=== PATIENT | female | born 1975 | race Hispanic/Latino ===

== ENCOUNTER 2020-06-24 21:47 | Emergency (ER) | payer BC | END 2020-06-24 22:06 | disposition home or self-care (01) | LOC: CSHERS 21:47 | DX: R20.2 Paresthesia of skin (principal); T50.B95A Adverse effect of other viral vaccines, initial encounter | CPT/HCPCS: 99283 ==

== ENCOUNTER 2021-02-21 16:06 | Outpatient (CLI) | payer BC | END 2021-02-21 16:07 | disposition home or self-care (01) | LOC: CSHMAMMO 16:06 | PROVIDERS: ATTEND Family Medicine | DX: Z12.31 Encounter for screening mammogram for malignant neoplasm of breast (principal) | CPT/HCPCS: 77063; 77067 ==

== ENCOUNTER 2022-03-26 08:05 | Outpatient (CLI) | payer BC | END 2022-03-26 08:06 | disposition home or self-care (01) | LOC: CSHMAMMO 08:05 | PROVIDERS: ATTEND Family Medicine | DX: Z12.31 Encounter for screening mammogram for malignant neoplasm of breast (principal) | CPT/HCPCS: 77063; 77067 ==

== ENCOUNTER 2023-12-02 08:55 | Outpatient (CLI) | payer OTHER | END 2023-12-02 08:56 | disposition home or self-care (01) | LOC: CSHMAMMO 08:55 | PROVIDERS: ATTEND Family Medicine | DX: Z12.31 Encounter for screening mammogram for malignant neoplasm of breast (principal) | CPT/HCPCS: 77063; 77067 ==

== ENCOUNTER 2024-01-10 08:40 | Day surgery (SDC) | payer OTHER ==
[2024-01-08 13:20] VITALS: BMI 25.4
[2024-01-10] MEDS ORDERED: PROPOFOL 60 ML ONE (11:06)
[2024-01-10] MEDS ORDERED: fentaNYL 50 mcg/mL 1 mL Vial ONE (11:07)
== END 2024-01-10 12:20 | disposition home or self-care (01) ==
LOC: CSHSDC 08:40
PROVIDERS: ATTEND Surgery
PROC: 0DJD8ZZ Inspection of Lower Intestinal Tract, Via Natural or Artificial Opening Endoscopic (ICD-10-PCS; principal; 2024-01-10)
DX: Z12.11 Encounter for screening for malignant neoplasm of colon (principal); Z87.891 Personal history of nicotine dependence; Z79.899 Other long term (current) drug therapy; Z98.890 Other specified postprocedural states
CPT/HCPCS: J2704; J3010